=== PATIENT | male | born 1995 | race Caucasian/White ===

== ENCOUNTER 2017-04-15 17:23 | Emergency (ER) | payer BC ==
--- NOTE | ~2017-04-15 | CR72 ---
[facility]. [facility] A Service of [facility] & [facility] RADIOLOGY TEXT RESULTS PATIENT: EVANGELINA ISAAC LOCATION: SED : [birth year] UNIT #: [id number] AGE: [address]: CLARITZA DOLL SEX: M ORDER DR: [id number] [place] [id number] E MR#: [id number] Acc #: [id number] NAME: EVANGELINA ISAAC : 1995 SEX: M STUDY DATE/TIME: 04/15/2017 17:59 UNIT: SED ROOM: STUDY DESCRIPTION: CR Chest Single View Portable Attending Physician: (Res) Claritza Doll Ordering Physician: (Res) Claritza Doll Primary Care Physician: No Primary Care Physician MEDICAL IMAGING REPORT This report is preliminary unless electronic signature is present. EXAM Portable chest, 04/15/2017. HISTORY 21-year-old male with chest pain for 3-4 days. COMPARISON STUDIES Comparison chest, 01/12/2010. FINDINGS Frontal chest demonstrates clear lungs. No pleural effusion or pneumothorax. Heart size and mediastinum are normal. Pulmonary vasculature normal. IMPRESSION No acute cardiopulmonary findings. Dictated by... Ross Alejo M.D. THIS IS AN ELECTRONICALLY VERIFIED REPORT Ross Alejo M.D. at 04/16/2017 7:52 AM GEE/rené TD: 04/15/2017 19:57 JOB #: [id number] MEDICAL IMAGING REPORT Page 1 of 1
--- NOTE | ~2017-04-15 | EKG ---
PATIENT: EVANGELINA ISAAC UNIT #: [id number] Ventricular Rate: 77 BPM Atrial Rate: 77 BPM P-R Interval: 172 ms QRS Duration: 78 ms Q-T Interval: 366 ms QTC Calculation(Bezet): 414 ms P [place]: -1 degrees Calculated R [place]: 66 degrees Calculated T [place]: 57 degrees Diagnosis Line: Normal sinus rhythm Diagnosis Line: Normal ECG Diagnosis Line: When compared with ECG of 12-JAN-2010 15:14, Diagnosis Line: PREVIOUS ECG IS PRESENT Diagnosis Line: Confirmed by BRENDA STANLEY MD ([id number]) on Diagnosis Line: 04/16/2017 2:14:58 PM INTERPRETING MD: LIZETH SAENZ
[~2017-04-15 17:23] MED LIST: AMOXICILLIN875 MG PO; AMOXIL500 MG PO; BACTRIM DS TABL1 TA1 PO; KEFLEX500 M1 PO; MELATONIN1 MG PO; MOTRIN400 MG PO; MOTRIN600 M2 PO; NO MEDICATIONS; PHENERGAN25 MG PO; VOLTAREN75 MG PO; ZOFRAN ODT4 MG PO
== END 2017-04-15 19:09 | disposition home or self-care (01) ==
LOC: SED 17:23
DX: R07.89 Other chest pain (principal); F41.9 Anxiety disorder, unspecified; Z90.49 Acquired absence of other specified parts of digestive tract
CPT/HCPCS: 71010; 93005; 99285

== ENCOUNTER 2017-04-19 08:13 | Emergency (ER) | payer BC ==
--- NOTE | ~2017-04-19 | EKG ---
PATIENT: EVANGELINA ISAAC UNIT #: [id number] Ventricular Rate: 57 BPM Atrial Rate: 57 BPM P-R Interval: 184 ms QRS Duration: 88 ms Q-T Interval: 392 ms QTC Calculation(Bezet): 381 ms P [place]: 9 degrees Calculated R [place]: 65 degrees Calculated T [place]: 45 degrees Diagnosis Line: Sinus bradycardia Diagnosis Line: Early repolarization Diagnosis Line: Otherwise normal ECG Diagnosis Line: When compared with ECG of 15-APR-2017 18:17, Diagnosis Line: No significant change was found Diagnosis Line: Confirmed by LEVI BROOKE MD ([id number]) on Diagnosis Line: 04/28/2017 9:55:45 PM INTERPRETING MD: COOKIE
--- NOTE | ~2017-04-19 | CR72 ---
[facility]. [facility] A Service of [facility] & [facility] RADIOLOGY TEXT RESULTS PATIENT: EVANGELINA ISAAC LOCATION: SED : [birth year] UNIT #: [id number] AGE: [address]: Savita Vick MD SEX: M ORDER DR: [id number] [place] [id number] E MR#: [id number] Acc #: [id number] NAME: EVANGELINA ISAAC : 1995 SEX: M STUDY DATE/TIME: 04/19/2017 8:44 UNIT: SED ROOM: STUDY DESCRIPTION: CR Chest Single View Portable Attending Physician: Savita Vick M.D. Ordering Physician: Savita Vick M.D. Primary Care Physician: No Primary Care Physician MEDICAL IMAGING REPORT This report is preliminary unless electronic signature is present. EXAM Portable chest INDICATIONS Chest pain since 11 o'clock last night, 04/19/17 COMPARISON 04/15/17. FINDINGS A portable view of the chest was obtained. The heart size and vascularity are normal. Lungs are clear. The bones are unremarkable. IMPRESSION No active disease Dictated by... Aayush Hansen M.D. THIS IS AN ELECTRONICALLY VERIFIED REPORT Aayush Hansen M.D. at 04/19/2017 10:51 AM MAICO/karyn TD: 04/19/2017 10:35 JOB #: [id number] MEDICAL IMAGING REPORT Page 1 of 1
[2017-04-19] MEDS ORDERED: MOTRIN PO (08:20)
[2017-04-19 08:57] LABS: BASOPHIL% 0.6 % (0-2.5); EOSINOPHIL# 0.1 X10e3 (0-0.7); HEMATOCRIT 41.3 % (38.0-50.0); HEMOGLOBIN 14.5 gm/dL (13.0-16.0); LYMPHOCYTE# 1.7 X10e3 (1.0-3.5); LYMPHOCYTE% 21.7 % (17.0-45.0); MEAN CELL VOLUME 86.1 FL (83-96); MEAN CORPUSCULAR HEMOGLOBIN 30.3 PG (28-34); MEAN CORPUSCULAR HGB CONC 35.1 g/dL (30-36); MEAN PLATELET VOLUME 9.5 FL (6.5-11.5); MONOCYTE# 0.7 X10e3 (0-1.0); MONOCYTE% 9.4 % (3.0-12.0); NEUTROPHIL# 5.1 X10e3 (1.5-7.1); NEUTROPHIL% 66.3 % (40-75); PLATELET COUNT 145 X10e3 (140-420); RED BLOOD COUNT 4.79 X10e (3.90-5.60); RED CELL DISTRIBUTION WIDTH 12.4 % (11.0-15.5); WHITE BLOOD COUNT 7.6 X10e3 (4.0-10.5)
[2017-04-19 09:00] LABS: POC - CKMB <1.0 ng/mL (0.0-7.9); POC - TROPONIN <0.05 ng/mL (<=0.05)
[2017-04-19 09:03] LABS: DIFF IND NO
[2017-04-19 09:17] LABS: ALBUMIN SERUM 4.5 g/dL (3.5-5.0); BILIRUBIN, DIRECT 0.1 mg/dL (0.0-0.2); BILIRUBIN,INDIRECT 0.9 mg/dL (0.0-0.9); CALCIUM SERUM 9.8 mg/dL (8.4-10.2); GLOM FILT RATE Estimated 108.6 mL/min (>60); POTASSIUM 3.8 mmol/L (3.5-5.1); PROTEIN TOTAL SERUM 7.1 g/dL (6.0-8.3)
== END 2017-04-19 09:49 | disposition home or self-care (01) ==
LOC: SED 08:13
PROVIDERS: Student in an Organized Health Care Education/Training Program
DX: K21.9 Gastro-esophageal reflux disease without esophagitis (principal); K29.70 Gastritis, unspecified, without bleeding; Z90.49 Acquired absence of other specified parts of digestive tract
CPT/HCPCS: 36415; 71010; 80048; 80076; 82553; 83690; 83735; 84484; 85025; 93005; 99285